=== PATIENT | male | born 1940 | race Caucasian/White ===

== ENCOUNTER 2019-12-10 17:58 | Emergency (ER) | payer MEDICARE ==
[~2019-12-10] VITALS: Ht 157.5 cm; Wt 79.4 kg
[2019-12-10 18:04] VITALS: BP_SYST 137
--- NOTE | 2019-12-10 18:10 | NUR ---
Pt came to ER for constipation and rectal pain. Pt has been taking norco and one dose of stool softener prior to arrival. Complaints 8/10 pain and inability to use restroom, VSS
[2019-12-10] MEDS ORDERED: NACL 0.9% 1,000 ML IV ONE (18:14)
--- NOTE | 2019-12-10 18:15 | NUR ---
Patient to [facility] for evaluation. Side rails up. Report given to LUIS ANTONIO Fernandez
--- NOTE | 2019-12-10 18:20 | NUR ---
ER at bedside examining patient.
[2019-12-10] MEDS ORDERED: ONDANSETRON HCL 4 MG/2 ML VIAL IVP ONE (18:45)
[2019-12-10] MEDS ORDERED: MORPHINE 4 MG/ML INJ. SYRINGE IVP ONE ×2 (18:45→20:45)
[2019-12-10 18:55] LABS: ANION GAP 8 (5-15); CALCIUM 8.5 mg/dL (8.4-11.0); CHLORIDE 99 mmol/L (98-107); CREATININE 1.01 mg/dL (0.55-1.30); GLUCOSE 117 mg/dL (70-99); POTASSIUM 3.6 mmol/L (3.5-5.1); SODIUM SERUM 134 mmol/L (136-145); UREA NITROGEN, BLOOD 21 mg/dL (8-21)
[2019-12-10 19:00] LABS: BASOPHILS % (AUTO) 0.5 % (0.0-2.0); EOSINOPHILS # (AUTO) 0.3 K/uL (0.0-0.4); EOSINOPHILS % (AUTO) 3.5 % (0.0-4.0); HEMATOCRIT 43.6 % (36-54); HEMOGLOBIN 14.9 g/dL (14.0-18.0); LYMPHOCYTES % (AUTO) 12.5 % (20.5-51.5); MEAN CORPUSCULAR HEMOGLOBIN 33 pg (27-31); MEAN CORPUSCULAR HGB CONC 34 % (32-36); MEAN CORPUSCULAR VOLUME 98 fL (79.0-98.0); MONOCYTES # (AUTO) 0.5 K/uL (0.0-1.0); MONOCYTES % (AUTO) 5.5 % (1.7-9.3); NEUTROPHILS # (AUTO) 6.5 K/uL (1.8-7.7); PLATELET COUNT (AUTO) 95 K/uL (130-430); RED BLOOD CELL COUNT(AUTO) 4.46 MIL/uL (4.2-6.2); RED CELL DISTRIBUTION WIDTH 12.7 % (9.0-15.0); WHITE BLOOD COUNT (AUTO) 8.3 K/uL (4.8-10.8)
[2019-12-10 19:01] LABS: ALANINE AMINOTRANSFERASE 34 U/L (12-78); ALBUMIN 4.3 g/dL (3.4-4.8); ASPARTATE AMINOTRANSFERASE 31 U/L (10-37); LIPASE 112 U/L (73-393); TOTAL BILIRUBIN 0.4 mg/dL (0.0-1.0)
--- NOTE | 2019-12-10 19:31 | NUR ---
moved to 3
--- NOTE | 2019-12-10 19:39 | NUR ---
Pt guven morphne 4mg, pain did not reside. MD notified.
--- NOTE | 2019-12-10 20:14 | NUR ---
Spoke to pts daughter Jazmin, aware we are awaiting labs. Contact information [phone]
[2019-12-10] MEDS ORDERED: ASPIRIN 81 MG TAB.CHEW PO ONE (20:45)
[2019-12-10] MEDS ORDERED: CLOPIDOGREL BISULFATE 75 MG TABLET PO ONE (20:45)
[2019-12-10] MEDS ORDERED: NITROGLYCERIN 0.4 MG TAB.SUBL SL ONE (20:45)
[2019-12-10 21:30] LABS: PROTHROMBIN TIME 10.1 SECS (9.5-12.5)
--- NOTE | 2019-12-10 21:50 | NUR ---
IV 20G LAC intact,patent, 10 cc flushed. No infiltration noted. Charge Nurse from [facility] aware of IV placement.
--- NOTE | 2019-12-10 21:52 | NUR ---
Called [facility], report given to charge nurse Kanchan. Pt is aware of transfer and transfer acknowledgement signed. Attachment of ct of ABD/ Pelvis attached to transfer information.
[2019-12-10 21:59] VITALS: BP_SYST 103
--- NOTE | 2019-12-10 21:59 | NUR ---
Patient to be transferred to [facility]. Is being transferred due to higher level of care. Receiving facility has accepting physician and available space. ER physician has signed transfer form. Patient or responsible constitution party has agreed to transfer and signed form. Patient belongings inventoried and will be sent with patient. Copy of nursing notes, lab reports, EKG, Physicians Orders and X-rays to be sent with patient. Report called to ER Charge Nurse Kanchan at receiving facility. Receiving physician is . [facility] has been called for transfer. ETA is [id number], Arrived at 2205.
--- NOTE | 2019-12-10 22:00 | NUR ---
pt requested Daughter Jazmin to be called. Family member aware of transfer.
== END 2019-12-10 21:59 | disposition short-term general hospital (02) ==
LOC: SED 17:58
DX: K56.41 Fecal impaction (principal); R10.30 Lower abdominal pain, unspecified; I10 Essential (primary) hypertension; E07.9 Disorder of thyroid, unspecified; Z85.9 Personal history of malignant neoplasm, unspecified
CPT/HCPCS: 36415; 71045; 74176; 80053; 82550; 83690; 84484; 85025; 85610; 85730; 96374; 96375; 96376; 99285; J2270; J2405; J7030; 93005